=== PATIENT | male | born 1965 | race Caucasian/White ===

== ENCOUNTER → 2017-08-31 | Outpatient (CLI) | payer BC ==
[~2017-08-31] MED LIST: NONE PER PT
[2017-08-31 13:43] LABS: BASOPHILS # (AUTO) 0.02 x10^3/uL (0-0.1); BASOPHILS % (AUTO) 0 % (0-1); EOSINOPHILS % (AUTO) 2 % (1-7); LYMPHOCYTES # (AUTO) 1.59 x10^3/uL (1-3.4); LYMPHOCYTES % (AUTO) 33 % (22-44); MD NO; MEAN CORPUSCULAR HEMOGLOBIN 30.4 pg (27.5-34.5); MEAN CORPUSCULAR HGB CONC 33.8 g/dL (33.2-36.2); MEAN CORPUSCULAR VOLUME 90.1 fL (81-97); MEAN PLATELET VOLUME 8.7 fL (7.4-10.4); MONOCYTES % (AUTO) 8 % (2-9); NEUTROPHILS # (AUTO) 2.71 x10^3/uL (1.8-6.8); NEUTROPHILS % (AUTO) 56 % (42-75); PLATELET COUNT 165 x10^3/uL (130-400); RED BLOOD COUNT 5.28 x10^6/uL (4.38-5.82); RED CELL DISTRIBUTION WIDTH 13.7 % (9.4-14.8)
[2017-08-31 13:44] LABS: MICROSCOPIC NOT IND
[2017-08-31 13:47] LABS: ANION GAP 6 mmol/L (5-15); CALCIUM 9.5 mg/dL (8.5-10.1); CHLORIDE 107 mmol/L (98-107); CREATININE 0.94 mg/dL (0.7-1.3)
[2017-08-31 13:51] LABS: CULTURE INDICATED? NO
== END ==
LOC: STAR 12:39
PROVIDERS: ATTEND Orthopaedic Surgery
DX: M17.11 Unilateral primary osteoarthritis, right knee (principal); M17.12 Unilateral primary osteoarthritis, left knee
CPT/HCPCS: 36415; 80048; 81003; 85025; 87081

== ENCOUNTER 2017-09-10 06:42 | Inpatient (IN) | payer BC ==
[~2017-09-10] VITALS: Ht 170.2 cm; Wt 92.8 kg
[2017-09-10] MEDS ORDERED: LACTATED RINGERS 1,000 ML IV SCH (07:11)
[2017-09-10] MEDS ORDERED: VANCOMYCIN PER PHARMACY MC PRN (07:30)
[2017-09-10] MEDS ORDERED: ACETAMINOPHEN 500 MG TABLET PO ONE (07:30)
[2017-09-10] MEDS ORDERED: OxyconTIN ER 20 MG TAB.ER PO ONE (07:30)
[2017-09-10] MEDS ORDERED: GABAPENTIN 300 MG CAPSULE PO ONE (07:30)
[2017-09-10] MEDS ORDERED: VANCOMYCIN 1,700 MG in SODIUM CHLORIDE 0.9% 250 ML IV ONE (07:30)
[2017-09-10] MEDS ORDERED: FENTANYL PF 250 MCG/5ML ONE (08:09)
[2017-09-10] MEDS ORDERED: MIDAZOLAM 1 MG/ML, 2ML ONE (08:09)
[2017-09-10] MEDS ORDERED: LIDOCAINE-MPF 2% ,5ML ONE (08:11)
[2017-09-10] MEDS ORDERED: ONDANSETRON 2MG/ML, 2ML ONE (08:11)
[2017-09-10] MEDS ORDERED: BUPIVACAINE/PF 0.25% ONE ×2 (08:11)
[2017-09-10] MEDS ORDERED: CEFAZOLIN 1,000 MG ONE (08:11)
[2017-09-10] MEDS ORDERED: PROPOFOL 10 MG/ML, 20ML ONE (08:11)
[2017-09-10] MEDS ORDERED: DEXAMETHASONE 4 MG/ML, 1ML ONE (08:11)
[2017-09-10] MEDS ORDERED: LIDOCAINE GEL 2%, 5ML ONE (08:12)
[2017-09-10] MEDS ORDERED: TAMSULOSIN 0.4 MG CAP.ER.24H PO ONE (09:00)
[2017-09-10] MEDS ORDERED: VANCOMYCIN 1,000 MG ONE (09:09)
[2017-09-10] MEDS ORDERED: SODIUM CHLORIDE 0.9% 100 ML ONE (09:09)
[2017-09-10] MEDS ORDERED: ROPIvacaine/PF 0.2%, 20 ML ONE (09:09)
[2017-09-10] MEDS ORDERED: KETOROLAC 60 MG/2 ML ONE (09:09)
[2017-09-10] MEDS ORDERED: TRANEXAMIC ACID 100 MG/ML, 10ML ONE ×2 (09:09)
[2017-09-10] MEDS ORDERED: EPINEPHRINE 1 MG/ML, 1ML ONE (09:10)
[2017-09-10] MEDS ORDERED: SUCCINYLCHOLINE 20 MG/ML, 10ML ONE (09:24)
[2017-09-10] MEDS ORDERED: MEPERIDINE/PF 100 MG/ML ONE (10:15)
[2017-09-10] MEDS ORDERED: SCOPOLAMINE PATCH, 1.5MG PATCH.TD72 TD PRN (10:30)
[2017-09-10] MEDS ORDERED: METOCLOPRAMIDE 5 MG/ML, 2ML IV PRN (10:30)
[2017-09-10] MEDS ORDERED: MORPHINE SULFATE 4 MG/ML, 1ML IVPush PRN (10:30)
[2017-09-10] MEDS ORDERED: LABETALOL 5MG/ML, 20ML IV PRN (10:30)
[2017-09-10] MEDS ORDERED: DIAZEPAM 5 MG/ML, 2ML IVPush PRN (10:30)
[2017-09-10] MEDS ORDERED: MEPERIDINE/PF 25MG/0.5ML IVPush PRN (10:30)
[2017-09-10] MEDS ORDERED: OXYcodone 5 MG/5 ML ORAL.SOL UDC PO PRN (10:30)
[2017-09-10] MEDS ORDERED: EPHEDRINE 50 MG/ML, 1ML IM PRN (10:30)
[2017-09-10] MEDS ORDERED: DIPHENHYDRAMINE 50 MG/ML, 1ML IVPush PRN (10:30)
[2017-09-10] MEDS ORDERED: ALBUTEROL/IPRATROPIUM 2.5MG/0.5MG, 3 ML NPPB PRN (10:30)
[2017-09-10] MEDS ORDERED: HYDROmorphone 1 MG/ML, 1ML IV PRN ×2 (10:30→12:30)
[2017-09-10] MEDS ORDERED: ONDANSETRON ODT 8 MG PO PRN (10:30)
[2017-09-10] MEDS ORDERED: hydrALAzine 20 MG/ML, 1ML IV PRN (10:30)
[2017-09-10] MEDS ORDERED: PROMETHAZINE 25 MG/ML, 1ML IV PRN (10:30)
[2017-09-10] MEDS ORDERED: MIDAZOLAM 1 MG/ML, 2ML IV PRN (10:30)
[2017-09-10] MEDS ORDERED: SENNA/DOCUSATE TABLET PO PRN (12:30)
[2017-09-10] MEDS ORDERED: ONDANSETRON 2MG/ML, 2ML IV PRN (12:30)
[2017-09-10] MEDS ORDERED: PROMETHAZINE 25 MG/ML, 1ML IM PRN (12:30)
[2017-09-10] MEDS: ACETAMINOPHEN 650 MG/20.3 ML UDC PO SCH ×2 (12:30→18:30)
[2017-09-10] MEDS ORDERED: MAGNESIUM HYDROXIDE 8%, 30ML UDC PO PRN (12:30)
[2017-09-10] MEDS ORDERED: PROMETHAZINE 12.5 MG SUPP PR PRN (12:30)
[2017-09-10] MEDS ORDERED: HYDROcodone/APAP 10/325 MG TABLET PO PRN (12:30)
[2017-09-10] MEDS: OXYcodone IR 5MG TABLET PO SCH ×3 (12:30→20:30)
[2017-09-10] MEDS ORDERED: DIPHENHYDRAMINE 25 MG CAPSULE PO PRN (12:30)
[2017-09-10] MEDS ORDERED: ONDANSETRON 4 MG TABLET PO PRN (12:30)
[2017-09-10] MEDS ORDERED: BISACODYL 10 MG SUPP PR PRN (12:30)
[2017-09-10] MEDS ORDERED: ALUMINUM/MAG/SIMETHICONE 30 ML UDC PO PRN (12:30)
[2017-09-10] MEDS ORDERED: OXYcodone IR 5MG TABLET PO PRN (12:30)
[2017-09-10] MEDS: KETOROLAC 30 MG/1 ML IV SCH ×2 (12:30→18:30)
[2017-09-10] MEDS ORDERED: DIAZEPAM 5 MG TABLET PO PRN (12:30)
[2017-09-10] MEDS ORDERED: ZOLPIDEM 5MG TABLET PO PRN (12:30)
[2017-09-10] MEDS ORDERED: OXYcodone 5 MG/5 ML ORAL.SOL UDC ONE (12:51)
[2017-09-10] MEDS ORDERED: FENTANYL PF 100 MCG/2ML ONE (12:51)
[2017-09-10] MEDS: FENTANYL PF 100 MCG/2ML IV PRN ×2 (12:54→13:01)
[2017-09-10] MEDS: TAMSULOSIN 0.4 MG CAP.ER.24H PO SCH (13:00)
[2017-09-10] MEDS ORDERED: TRANEXAMIC ACID 1,000 MG in SODIUM CHLORIDE 0.9% 100 ML IVPB ONE (13:00)
[2017-09-10 14:20] VITALS: BP 102/53
[2017-09-10] MEDS ORDERED: CEFAZOLIN PMX 2GM/50ML 50 ML IVPB SCH (16:30)
[2017-09-10] MEDS: ASPIRIN 81 MG TABLET EC PO SCH (18:32)
[2017-09-10] MEDS: CEFAZOLIN PMX 2GM/50ML 50 ML IVPB SCH (18:32)
[2017-09-10] MEDS: D5%-0.45% NACL 1,000 ML IV SCH (18:32)
[2017-09-10 19:34] VITALS: BP 106/64
[2017-09-10] MEDS: DOCUSATE 100 MG CAPSULE PO SCH (21:46)
[2017-09-10 23:52] VITALS: BP 118/69
[2017-09-11] MEDS: OXYcodone IR 5MG TABLET PO SCH ×4 (00:30→12:30)
[2017-09-11] MEDS: ACETAMINOPHEN 650 MG/20.3 ML UDC PO SCH ×3 (00:30→11:56)
[2017-09-11] MEDS: KETOROLAC 30 MG/1 ML IV SCH ×2 (01:23→07:37)
[2017-09-11] MEDS: D5%-0.45% NACL 1,000 ML IV SCH (01:25)
[2017-09-11] MEDS: CEFAZOLIN PMX 2GM/50ML 50 ML IVPB SCH (02:36)
[2017-09-11 03:04] VITALS: BP 104/65
[2017-09-11] MEDS ORDERED: DEXAMETHASONE 4 MG/ML, 1ML IVPush SCH (06:00)
[2017-09-11] MEDS: ASPIRIN 81 MG TABLET EC PO SCH (06:08)
[2017-09-11] MEDS: DOCUSATE 100 MG CAPSULE PO SCH (07:37)
[2017-09-11] MEDS: TAMSULOSIN 0.4 MG CAP.ER.24H PO SCH (07:37)
[2017-09-11 07:42] VITALS: BP 100/59
[2017-09-11] MEDS ORDERED: MULTIVITAMINS/MINERALS TABLET PO SCH (09:00)
[2017-09-11] MEDS ORDERED: OXYC5TAB3 PO (12:21)
== END 2017-09-11 12:57 | disposition home or self-care (01) | DRG 462 ==
LOC: ORIP 06:42 → EDSTATUS 07:30 → 4NOR 14:18
PROVIDERS: ADMIT Orthopaedic Surgery; ATTEND Orthopaedic Surgery
PROC: 0SRC069 Replacement of Right Knee Joint with Oxidized Zirconium on Polyethylene Synthetic Substitute, Cemented, Open Approach (ICD-10-PCS; 2017-09-10)
PROC: 0SRD069 Replacement of Left Knee Joint with Oxidized Zirconium on Polyethylene Synthetic Substitute, Cemented, Open Approach (ICD-10-PCS; principal; 2017-09-10 09:45)
DX: M17.0 Bilateral primary osteoarthritis of knee (principal)
CPT/HCPCS: 36415; 85014; 85018; C1713; J0171; J0690; J1100; J1885; J2250; J2405; J2704; J2795; J3010; J3370; J3490; C1776; J0330; J2175; J7050